=== PATIENT | female | born 1940 | race Caucasian/White ===

== ENCOUNTER 2025-02-19 17:06 | Inpatient (IN) ==
[2025-02-19 17:36] LABS: Hematocrit (blood only) 25.8 % (37.0-47.0); Hemoglobin 7.7 g/dl (12.0-16.0); Immature Granulocytes # (auto) 0.02 K/uL (0.01-0.20); Immature Granulocytes % (auto) 0.2 %; Mean Corpuscular Hemoglobin 21.2 pg (25.0-34.0); Mean Corpuscular Volume 70.9 fL (80.0-100.0); Platelet Count 265 K/uL (130-400); RDW Standard Deviation 40.8 fL (36.4-46.3); Red Blood Count 3.64 M/uL (4.20-5.40); White Blood Count 8.01 K/ul (4.8-10.8)
[2025-02-19 17:52] LABS: Anion Gap 8.0 (3-11); Blood Urea Nitrogen 16.0 mg/dl (6-23); Calcium 9.1 mg/dl (8.6-10.3); Carbon Dioxide 23.0 mmol/L (21-32); Chloride 110.0 mmol/L (98-107); Creatinine Clr Calc Pharmacy 63.9 ml/min; Glucose 104.0 mg/dl (70-99(Fasting)); Potassium 3.9 mmol/L (3.5-5.1); Sodium 141.0 mmol/L (136-145)
[2025-02-19 18:04] LABS: INR 1.1 (0.9-1.1); Partial Thromboplastin Time 23 Seconds (21-31); Prothrombin Time 11.3 Seconds (9.0-12.0)
--- NOTE | 2025-02-19 18:28 | History & Physical Report ---
Date of Service February 19, 2025 Assessment & Plan (1) GIB (gastrointestinal bleeding): (2) Diabetes mellitus: (3) HTN (hypertension): Plan Ms. Doshi is a 84-year-old female that presented via EMS from [facility] with complaints of rectal bleeding. Patient has a history of hemorrhoids. Per outpatient records additional past medical history includes NIDDM 2, history of right LE DVT, vitamin D deficiency, glaucoma, and HTN. Patient will be admitted for further evaluation and management of her GI bleed. Started on a Protonix drip in the ED, type and screen along with blood consent performed in the ED, hold Xarelto for now given active ER keep n.p.o. trend H&H 6 hours. GI consult for evaluation and recommendation. Please see A/P for further details. #GIB: hematochezia and melena Hgb 7.7; baseline 9-10 per limited [facility] records. Q6h H/H Add on anemia panel; most recent Fe level 12/08/2024 was 17, TIBC 4, transferrin 4, ferritin 14 reticulocyte percent 1.38 NPO for now Protonix gtt started in ED GI Consult placed #H/O hemorrhoids Per [facility] has referral (placed today) to colorectal surgeon to discuss re: hemorrhoids and rectal tone rectal bleeding and soreness for past few months. #Diabetes Mellitus: Non-insulin dependent Most recent A1C: 6.5 on 12/08/24 Diet-controlled #H/O RLE DVT: Per [facility] records; DVT was in 2020 She had one unprovoked DVT and normal anti-coagulation work-up; it was decided to use Xarelto for life. Consider discontinuing Xarelto. Disposition: PCP: Dr. Gomez Code Status: Full Code VTE Prophylaxis: Teds and SCDs for now I spent a total of 81 minutes coordinating, documenting, and providing care for this patient excluding time spent in the performance of separately billed services or time spent by another provider/QHP. History of Present Illness Chief Complaint: BRBPR Primary Care Provider: Savannah Tavarez at [place] Ms. Doshi is a 84-year-old female that presented via EMS from [facility] with complaints of rectal bleeding. Patient has a history of hemorrhoids. We have limited medical information. Per outpatient records additional past medical history includes NIDDM 2, history of right LE DVT, vitamin D deficiency, glaucoma, and HTN. She does take Xarelto for H/O DVT; reportedly did not take it today. Per outpatient records she presented to her PCP today to discuss fecal incontinence. Along with her rectal bleeding. These symptoms have been intermittent over the past few months. It was discussed with the patient due to her decreased rectal tone and the role that this could be playing in her incontinence a referral to colorectal surgery was placed today. Patient is cognitively confused; is aware that we are in the hospital but was unable to tell me what brought her in today and admittedly said that she does have cognitive issues. I did ask if she had any next of kin that she would like us to contact and she said that she really does not have anybody but her brother and he is not a reliable source.She recently over the last year moved to [facility] after her hip surgery from [facility]. In the ED no leukocytosis 81, hemoglobin 7.7, unknown baseline. Otherwise electrolytes unremarkable. Patient will be admitted for further evaluation and management of her GI bleed. Started on a Protonix drip in the ED, type and screen along with blood consent performed in the ED, hold Xarelto for now given active ER keep n.p.o. trend H&H 6 hours. GI consult for evaluation and recommendation. She had one unprovoked DVT and normal anti-coagulation work-up; it was decided to use Xarelto for life. Consider discontinuing Xarelto. Please see A/P for further details. Allergies Allergy/AdvReac Type Severity Reaction Status Date / Time codeine Allergy Unknown ON [facility] Verified 02/19/25 18:32 MED LIST oxycodone Allergy Unknown ON [facility] Verified 02/19/25 18:32 MED LIST Home Medications Medication Instructions Recorded Confirmed Type acetaminophen 325 mg tablet 650 mg PO BID 02/19/25 02/19/25 History (Tylenol) acetaminophen 325 mg tablet 650 mg PO Q4H PRN PAIN/TEMP >100F 02/19/25 02/19/25 History (Tylenol) cholecalciferol (vitamin D3) 25 25 mcg PO DAILY 02/19/25 02/19/25 History mcg (1,000 unit) capsule (Vitamin D3) furosemide 20 mg tablet 20 mg PO DAILY 02/19/25 02/19/25 History latanoprost 0.005 % eye drops 1 drp OPB HS 02/19/25 02/19/25 History pantoprazole 40 mg tablet,delayed 40 mg PO DAILY 02/19/25 02/19/25 History release potassium chloride 20 mEq 20 meq PO DAILY 02/19/25 02/19/25 History tablet,extended release(part/cryst) rivaroxaban 20 mg tablet (Xarelto) 20 mg PO HS 02/19/25 02/19/25 History Past Med/Surg History Problem List (Updated 02/19/25 @ 18:54 by KRISS Coleman) HTN (hypertension) Diabetes mellitus GIB (gastrointestinal bleeding) Surgical History (Updated 02/19/25 @ 18:54 by KRISS Coleman) No pertinent past surgical history Social History Smoking Status: Former smoker Feels Safe at Home: Yes Review of Systems Review of Systems: Neuro: (-) Falls, trauma, slurred speech HEENT: (-) WAHL, dizziness, dysphagia, visual or auditory changes CV: (-) CP, palpitations, swelling Resp: (-) SOB GI: (-) appetite changes, N/V/D, bowel changes : (-) urinary changes Skin: (-) rashes Psych: (-) anxiety, depression Physical Exam Physical Exam: Neuro: AAOx2, PERRLA, no aphagia, memory changes, CNII-XII grossly intact HEENT: head normocephalic, moist mucus membranes. pale on exam. CV: S1/S2, (-) M/G/R, (-) edema, cap refill < 3 seconds Resp: Lungs CTA in all gordon. On RA GI: Abdomen S/NT/ND, Ax4 bowel sounds, (-) CVA tenderness Musculoskeletal: 5/5 B/L UE strength, 5/5 B/L LE strength. No gait disturbance Skin: (-) rashes , (-) erythema. Psych: euthymic mood Results & Data Results & Data Vital Signs (Past 12 Hours) Vital Signs Temp Pulse Pulse Resp BP BP Pulse Ox 02/19/25 17:26 90 02/19/25 17:22 87 18 95 02/19/25 17:18 94 H 18 157/84 H 99 02/19/25 17:00 36.9 C 18 157/84 H O2 Del Method 02/19/25 17:26 02/19/25 17:22 Room Air 02/19/25 17:18 Room Air 02/19/25 17:00 Laboratory Results Short CBC 02/19/25 Range/Units 17:22 WBC 8.01 (4.8-10.8) K/ul Hgb 7.7 L (12.0-16.0) g/dl Hct 25.8 L (37.0-47.0) % Plt Count 265 (130-400) K/uL BMP 02/19/25 17:22 Sodium 141 Potassium 3.9 Chloride 110 H Carbon Dioxide 23 BUN 16 Creatinine 0.78 Glucose 104 H Calcium 9.1 Code Status & VTE Plan Code Status Full Code in the event of cardiac or respiratory arrest VTE Prophylaxis Plan VTE Prophylaxis will be ordered: Yes Supervising Physician Co-Signing Physician Notes Patient seen and examined at bedside. Patient confused, oriented to self and partially location. States she has been having dark and red stools today. Unable to give further history. On exam, patient well appearing, fidgeting, inattention to space and time noted. Hgb slightly lower than baseline at 7.7, creatinine at baseline, ferritin low suggestive of blood loss. [facility] for hematochezia and melena, patient poor historian. Does have hx of hemorrhoids but Hgb is below baseline of 9-10 and seems less likely culprit. Suspect possible upper GI bleed with combined hemorrhoidal bleeding. Protonix, blood consent, GI consult in AM for consideration of EGD, trend Hgb q6hrs. SCDs for prophylaxis. Hold xarelto, and should stop at discharge as risk seems to outweigh benefit at this time. Delirium precautions. I have seen and discussed the case with the collaborating advanced practitioner. I agree with the above H&P. I have reviewed and confirmed the patients medical history, the findings on physical examination, and the patients diagnosis and treatment plan with Mercedes MONTERROSO and agree with the information documented. I spent a total of 30 minutes coordinating, documenting, and providing care for this patient excluding time spent in the performance of separately billed services. All of the aforementioned completed outside of collaborating with the assigned advanced practitioner for a full treatment plan. I have reviewed the advanced practitioner's documentation, and I agree with, and take responsibility for the plan of care
[2025-02-19 18:29] LABS: Anisocytosis Present; Hypochromasia Present; Ovalocytes 1+
[2025-02-19] MEDS: PANTOprazole 40 MG in DEXTROSE 5% MINI-B 100 ML IV SCH (18:33)
[2025-02-19 19:37] LABS: Iron 13.0 mcg/dl (35-150); Transferrin 327.0 mg/dl (200-360)
[2025-02-19 19:54] LABS: Thyroid Stimulating Hormone 1.67 uIu/ml (0.300-4.500)
[2025-02-19 19:59] LABS: Ferritin 5.2 ng/ml (8-388)
[2025-02-19] MEDS: PANTOPRAZOLE BOLUS/DRIP IV STA (20:19)
[2025-02-19 20:35] LABS: Reticulocytes # 0.050 10^6/uL (0.020-0.100)
[2025-02-19 21:00] LABS: Appearance Urine Clear (Clear); Bacteria Urine Automated None Seen (None Seen); Cast Urine Automated 0-2 /lpf (0-2); Epithelial Cell Urine Auto 0-2 /hpf (0-2); Glucose Urine UA Negative (Negative); RBC Urine Automated 0-2 /hpf (0-2); WBC Urine Automated 0-5 /hpf (0-5)
[2025-02-19] MEDS ORDERED: ACETAMINOPHEN 325 MG TAB PO PRN (21:13)
[2025-02-19] MEDS ORDERED: ALUMINUM/MAGNESIUM SUSP 30 ML UDC PO PRN (21:13)
[2025-02-19] MEDS ORDERED: MAGNESIUM HYDROXIDE SUSP 30 ML UDC PO PRN (21:13)
[2025-02-19] MEDS ORDERED: POLYETHYLENE (MIRALAX) 17 GM PACK PO PRN (21:13)
[2025-02-19] MEDS ORDERED: ONDANSETRON INJ 2 MG/ML 2 ML VIAL IV PRN (21:13)
[2025-02-19] MEDS: LATANOPROST 0.005% OP SOLN 2.5 ML BTL OPB SCH (21:17)
[2025-02-19 23:47] LABS: Hematocrit (blood only) 24.7 % (37.0-47.0); Hemoglobin 7.4 g/dl (12.0-16.0)
--- NOTE | 2025-02-20 00:35 | Emergency Department Note ---
History of Present Illness General Chief complaint: Abnormal Labs/Diagnostic Testing Stated complaint: ABNORMAL LAB, RECTAL BLEED Time Seen by Provider: 02/19/25 17:11 History of Present Illness Provider Complaint: + melena and + gross hematochezia Onset (ago): 1 week(s) Pain Consistency: + constant Relieved By: + none Exacerbated By: + bowel movement Context: + hemorrhoids and + anticoagulant use (Xarelto); no liver disease or no alcohol abuse Associated symptoms: no abdominal pain, no nausea, no vomiting, no epistaxis, no fever, no chills or no headaches Home Medications Medication Instructions Recorded Confirmed Type acetaminophen 325 mg tablet 650 mg PO BID 02/19/25 02/19/25 History (Tylenol) acetaminophen 325 mg tablet 650 mg PO Q4H PRN PAIN/TEMP >100F 02/19/25 02/19/25 History (Tylenol) cholecalciferol (vitamin D3) 25 25 mcg PO DAILY 02/19/25 02/19/25 History mcg (1,000 unit) capsule (Vitamin D3) furosemide 20 mg tablet 20 mg PO DAILY 02/19/25 02/19/25 History latanoprost 0.005 % eye drops 1 drp OPB HS 02/19/25 02/19/25 History pantoprazole 40 mg tablet,delayed 40 mg PO DAILY 02/19/25 02/19/25 History release potassium chloride 20 mEq 20 meq PO DAILY 02/19/25 02/19/25 History tablet,extended release(part/cryst) rivaroxaban 20 mg tablet (Xarelto) 20 mg PO HS 02/19/25 02/19/25 History Allergies Allergy/AdvReac Type Severity Reaction Status Date / Time codeine Allergy Unknown ON [facility] Verified 02/19/25 18:32 MED LIST oxycodone Allergy Unknown ON [facility] Verified 02/19/25 18:32 MED LIST Past Med/Surg History Problem List (Updated 02/20/25 @ 00:35 by Luis Araiza MD) GIB (gastrointestinal bleeding) (Acute) Medical History Diabetes mellitus HTN (hypertension) Surgical History No pertinent past surgical history Social History Smoking Status: Unknown if ever smoked Hx Alcohol Use: No Hx Substance Use: No Preferred Language: Tajik Communication Ability: Effective Journal Box Inspector Required: No Beliefs That Will Affect Care: None Current Living Situation: Personal Care Facility Current Living Situation Comment: [facility] Feels Safe at Home: Yes Safety Concerns: Feels Safe At This Time Assistive Devices: Glasses and Walker Physical Exam 2 Vital Signs: Vital Signs - 24 hr 02/19/25 17:00 02/19/25 17:18 02/19/25 17:22 Temperature 36.9 C Temperature Source Oral Pulse Rate 87 Pulse Rate [Right Finger] 94 H Respiratory Rate 18 18 18 Blood Pressure 157/84 H Blood Pressure [Le ft Arm] 157/84 H Blood Pressure Kelly n 108 Blood Pressure Kelly n [Left Arm] 108 Pulse Oximetry 99 95 Oxygen Delivery Me thod Room Air Room Air Sepsis Recent Feve r Within 48 Hours No Sepsis New/Unexpla ined Change in Men bia Status No Sepsis Action Take n by Nursing No Action Required 02/19/25 17:26 Temperature Temperature Source Pulse Rate 90 Pulse Rate [Right Finger] Respiratory Rate Blood Pressure Blood Pressure [Le ft Arm] Blood Pressure Kelly n Blood Pressure Kelly n [Left Arm] Pulse Oximetry Oxygen Delivery Me thod Sepsis Recent Feve r Within 48 Hours Sepsis New/Unexpla ined Change in Men bia Status Sepsis Action Take n by Nursing Physical Exam: Physical Exam GENERAL: oriented to person, place, and time. appears well-developed and well- nourished. She does not appear distressed. HENT: Exam performed. -Head: Normocephalic and atraumatic. -Right Ear: External ear normal. No mastoid erythema -Left Ear: External ear normal. No mastoid erythema -Mouth/Throat: The oropharynx is clear and moist. No trismus in the jaw. No dental abscesses or uvula swelling. No oropharyngeal exudate or tonsillar abscesses. EYES: Conjunctivae and EOM are normal.Right eye exhibits no discharge. Left eye exhibits no discharge. No scleral icterus. NECK: Normal range of motion. Neck supple. No JVD present. No tracheal deviation and normal range of motion present. CV: Normal rate, regular rhythm, normal heart sounds and intact distal pulses. There is no peripheral edema. Palpable radial pulses bue. PULM/CHEST: Effort normal and breath sounds normal. No respiratory distress. No stridor. no wheezes.no rales. -Chest Wall: no tenderness to palpation ABD: The abdomen is soft. Bowel sounds are normal. no distension. No mass is present. There is no tenderness. There is no rebound, no guarding, no Mckeon's sign and no tenderness at McBurney's point. Rovsig negative Rectal: Rectal exam performed with female nursing on site coordinator Jeannie. Melanotic stools. Hemoccult positive. Soft flesh-colored hemorrhoid with bleeding. MUSC/SKEL: Normal range of motion. There is no peripheral edema, tenderness or deformity. NEURO: Motor and sensation grossly intact. SKIN: Skin is warm and dry. not diaphoretic. PSYCH: normal mood and affect. Behavior is normal. Judgment and thought content normal. Course Course 1710: The patient was evaluated in room B12. A complete history and physical exam was performed Cardiac monitoring: An order was placed for continuous cardiac monitoring. The monitor shows a rate of 80 with sinus rhythm interpreted by me Patient be placed on Protonix bolus and drip. 191: Vital signs stable. Labs show hemoglobin of 7.7. Otherwise unremarkable. [facility]. Administered Medications Pantoprazole Sodium 40 mg/ (Dextrose) 100 mls @ 20 mls/hr IV Q5H [facility] Stop: 03/21/25 17:59 Last Admin: 02/19/25 22:24 Dose: 8 mg/hr, 20 mls/hr Documented By: Infusion: 02/19/25 22:24 Dose: Infused Documented By: Admin: 02/19/25 18:33 Dose: 8 mg/hr, 20 mls/hr Documented By: jennifer Latanoprost (Latanoprost 0.005% Op Soln 2.5 Ml Btl) 1 drops OPB HS [facility] Stop: 03/21/25 20:59 Last Admin: 02/19/25 21:17 Dose: 1 drops Documented By: MARIPOSA Discontinued Medications Pantoprazole Sodium 80 mg/ (Dextrose) 120 mls @ 480 mls/hr IV NOW ONE Stop: 02/19/25 17:50 Last Infusion: 02/19/25 20:20 Dose: Infused Documented By: Admin: 02/19/25 18:13 Dose: 480 mls/hr Documented By: jennifer Pantoprazole Sodium (Pantoprazole Bolus/Drip) 1 each IV NOW STA Stop: 02/19/25 17:37 Last Admin: 02/19/25 20:19 Dose: Not Given Documented By: MARTHA Medical Decision Making Laboratory Data Attestation: I reviewed the patient's lab results. 02/19/25 23:33 02/19/25 17:22 Lab Results 02/19/25 02/19/25 Range/Units 17:22 18:13 WBC 8.01 (4.8-10.8) K/ul RBC 3.64 L (4.20-5.40) M/uL Hgb 7.7 L (12.0-16.0) g/dl Hct 25.8 L (37.0-47.0) % MCV 70.9 L (80.0-100.0) fL MCH 21.2 L (25.0-34.0) pg MCHC 29.8 L (32.0-36.0) g/dL RDW Std Deviation 40.8 (36.4-46.3) fL RDW Coeff of Ron 15.9 H (11.5-14.5) % Plt Count 265 (130-400) K/uL MPV 11.1 (9.4-12.4) fL Immature Gran % (Auto) 0.2 % Neut % (Auto) 62.6 % Lymph % (Auto) 22.3 % Tyler % (Auto) 11.7 % Eos % (Auto) 2.5 % Baso % (Auto) 0.7 % Reticulocyte % (Auto) 1.27 (0.50-2.00) % Neut # (Auto) 5.00 (1.40-6.50) K/uL Lymph # (Auto) 1.79 (1.20-3.40) K/uL Tyler # (Auto) 0.94 H (0.11-0.59) K/uL Eos # (Auto) 0.20 (0.00-0.50) K/uL Baso # (Auto) 0.06 (0.00-0.20) K/uL Reticulocyte # 0.050 (0.020-0.100) 10^6/uL Immature Gran # (Auto) 0.02 (0.01-0.20) K/uL Hypochromasia Present Anisocytosis Present Ovalocytes 1+ PT 11.3 (9.0-12.0) Seconds INR 1.1 (0.9-1.1) APTT 23 (21-31) Seconds PTT Ratio 0.8 Sodium 141 (136-145) mmol/L Potassium 3.9 (3.5-5.1) mmol/L Chloride 110 H (98-107) mmol/L Carbon Dioxide 23 (21-32) mmol/L Anion Gap 8 (3-11) BUN 16 (6-23) mg/dl Creatinine 0.78 (0.6-1.2) mg/dl Est Cr Clr Drug Dosing 63.9 ml/min eGFR 75.32 BUN/Creatinine Ratio 20.5 H (10-20) Glucose 104 H (70-99(Fasting)) mg/dl Calcium 9.1 (8.6-10.3) mg/dl Iron 13 L (35-150) mcg/dl Transferrin 327 (200-360) mg/dl Ferritin 5.2 L (8-388) ng/ml Vitamin B12 151 L (180-914) pg/ml TSH 1.670 (0.300-4.500) uIu/ml Blood Type O Positive Antibody Screen NEGATIVE ECG Data Attestation: I personally reviewed and interpreted this ECG as follows: Rate (beats per minute): 84 Rhythm: normal sinus Findings: no ST depression, no ST elevation or no prolonged QT MDM Narrative 1711: The patient was evaluated in room B12. A complete history and physical exam was performed Cardiac monitoring: An order was placed for continuous cardiac monitoring. The monitor shows a rate of 80 with sinus rhythm interpreted by me Patient be placed on Protonix bolus and drip. 1915: Vital signs stable. Labs show hemoglobin of 7.7. Otherwise unremarkable. [facility] Impression & Plan GIB (gastrointestinal bleeding) Discharge Plan Visit Data Chief Complaint: Abnormal Labs/Diagnostic Testing Stated Complaint: ABNORMAL LAB, RECTAL BLEED ED Provider: Luis Araiza Discharge Problem: GIB (gastrointestinal bleeding) Patient Disposition: Admitted As Inpatient Condition: Fair Discharge Instructions Interventions: ED Discharge Assessment Last Done: 02/19/25 20:39
[2025-02-20 06:34] LABS: Hematocrit (blood only) 24.8 % (37.0-47.0); Hemoglobin 7.4 g/dl (12.0-16.0)
[2025-02-20 07:03] LABS: Anion Gap 8.0 (3-11); Blood Urea Nitrogen 12.0 mg/dl (6-23); Calcium 8.7 mg/dl (8.6-10.3); Carbon Dioxide 23.0 mmol/L (21-32); Chloride 109.0 mmol/L (98-107); Creatinine Clr Calc Pharmacy 62.6 ml/min; Glucose 123.0 mg/dl (70-99(Fasting)); Magnesium 1.9 mg/dl (1.7-2.4); Potassium 3.9 mmol/L (3.5-5.1); Sodium 140.0 mmol/L (136-145)
[2025-02-20] MEDS: IRON SUCROSE 300 MG in SODIUM CHLORIDE 0.9% 250 ML IV ONE (08:35)
[2025-02-20] MEDS: POTASSIUM CHLORIDE CRTAB 20 MEQ TABCR PO SCH (08:35)
[2025-02-20] MEDS: FUROSEMIDE 20 MG TAB PO SCH (08:36)
--- NOTE | 2025-02-20 08:36 | Gastrointestinal Consultation ---
Date of Consultation February 20, 2025 Assessment & Plan (1) GIB (gastrointestinal bleeding): 84 year old anxious female with anemia and rectal bleeding. She reports black stools "for many months". Hgb 7.4 on admit and remained stable over night. She does need evaluation with EGD and colonoscopy. Since she has been on xarelto we will wait until Saturday as this is not emergent. She really wants to go back to [facility] but I told her I would recommend she stay for evaluation. She wants to talk to hospitalist in charge. If she remains will prep for EGD and colonoscopy on Saturday. She can have clear liquids until then. History of Present Illness Reason for Consultation: rectal bleeding Attending Physician: Eunice Mcclelland MD History of Present Illness 84 year old female whom I am asked to see about rectal bleeding. Patient gives a very disjointed history but does say she has seen black stools for many months. She knows she has hemorrhoid problems and says she does have "bleeding hemorrhoids". She is apparently set up to see a colorectal surgeon as an outpatient. She denies abdominal pain but does admit to what she calls "anal pain". She also has some issues with incontinence. She says she has never had an EGD or a colonoscopy. She is very frantic and anxious on my visit and keeps asking just to be sent back to [facility] as she does not want to be in the hospital. She does take xarelto and took her last dose yesterday. Allergies Allergy/AdvReac Type Severity Reaction Status Date / Time codeine Allergy Unknown ON [facility] Verified 02/19/25 18:32 MED LIST oxycodone Allergy Unknown ON [facility] Verified 02/19/25 18:32 MED LIST Home Medications Medication Instructions Recorded Confirmed Type acetaminophen 325 mg tablet 650 mg PO BID 02/19/25 02/19/25 History (Tylenol) acetaminophen 325 mg tablet 650 mg PO Q4H PRN PAIN/TEMP >100F 02/19/25 02/19/25 History (Tylenol) cholecalciferol (vitamin D3) 25 25 mcg PO DAILY 02/19/25 02/19/25 History mcg (1,000 unit) capsule (Vitamin D3) furosemide 20 mg tablet 20 mg PO DAILY 02/19/25 02/19/25 History latanoprost 0.005 % eye drops 1 drp OPB HS 02/19/25 02/19/25 History pantoprazole 40 mg tablet,delayed 40 mg PO DAILY 02/19/25 02/19/25 History release potassium chloride 20 mEq 20 meq PO DAILY 02/19/25 02/19/25 History tablet,extended release(part/cryst) rivaroxaban 20 mg tablet (Xarelto) 20 mg PO HS 02/19/25 02/19/25 History Patient History Medical History Diabetes mellitus HTN (hypertension) Surgical History No pertinent past surgical history Social History Smoking Status: Unknown if ever smoked Hx Alcohol Use: No Hx Substance Use: No Preferred Language: Dominican Communication Ability: Effective Urology Nurse Required: No Beliefs That Will Affect Care: None Current Living Situation: Personal Care Facility Current Living Situation Comment: [facility] Feels Safe at Home: Yes Safety Concerns: Feels Safe At This Time Assistive Devices: Glasses and Walker Review of Systems Review of Systems: Unobtainable due to cognitive status Physical Exam Physical Exam: Elderly, anxious female, in no physical distress Constitutional: WD/WN, vitals as above Neck: trachea midline, no thyromegaly Respiratory: normal respiratory effort, lungs clear to auscultation Cardiovascular: RRR, no murmur, no edema Gastrointestinal (Abdomen): normal bowel sounds, soft, nontender, no hepatosplenomegaly Results & Data Vital Signs (Past 12 Hours) Vital Signs Temp Pulse Pulse Resp BP Pulse Ox Pulse Ox 02/20/25 08:20 36.6 C 76 19 126/71 97 02/20/25 07:23 72 02/20/25 02:59 36.7 C 96 H 19 131/69 94 02/19/25 21:13 97 02/19/25 21:00 36.7 C 91 H 20 151/72 H 97 O2 Del Method O2 Del Method 02/20/25 08:20 Room Air 02/20/25 07:23 02/20/25 02:59 Room Air 02/19/25 21:13 Room Air 02/19/25 21:00 Room Air Laboratory Results 02/20/25 02/19/25 02/19/25 Range/Units 05:34 23:33 19:16 WBC (4.8-10.8) K/ul RBC (4.20-5.40) M/uL Hgb 7.4 L 7.4 L (12.0-16.0) g/dl Hct 24.8 L 24.7 L (37.0-47.0) % MCV (80.0-100.0) fL MCH (25.0-34.0) pg MCHC (32.0-36.0) g/dL RDW Std Deviation (36.4-46.3) fL RDW Coeff of Ron (11.5-14.5) % Plt Count (130-400) K/uL MPV (9.4-12.4) fL Immature Gran % (Auto) % Neut % (Auto) % Lymph % (Auto) % [place] % (Auto) % Eos % (Auto) % Baso % (Auto) % Reticulocyte % (Auto) (0.50-2.00) % Neut # (Auto) (1.40-6.50) K/uL Lymph # (Auto) (1.20-3.40) K/uL [place] # (Auto) (0.11-0.59) K/uL Eos # (Auto) (0.00-0.50) K/uL Baso # (Auto) (0.00-0.20) K/uL Reticulocyte # (0.020-0.100) 10^6/uL Immature Gran # (Auto) (0.01-0.20) K/uL Hypochromasia Anisocytosis Ovalocytes PT (9.0-12.0) Seconds INR (0.9-1.1) APTT (21-31) Seconds PTT Ratio Sodium 140 (136-145) mmol/L Potassium 3.9 (3.5-5.1) mmol/L Chloride 109 H (98-107) mmol/L Carbon Dioxide 23 (21-32) mmol/L Anion Gap 8 (3-11) BUN 12 (6-23) mg/dl Creatinine 0.76 (0.6-1.2) mg/dl Est Cr Clr Drug Dosing 62.6 ml/min eGFR 77.70 BUN/Creatinine Ratio 15.8 (10-20) Glucose 123 H (70-99(Fasting)) mg/dl Calcium 8.7 (8.6-10.3) mg/dl Phosphorus 3.4 (2.5-4.9) mg/dl Magnesium 1.9 (1.7-2.4) mg/dl Iron (35-150) mcg/dl Transferrin (200-360) mg/dl Ferritin (8-388) ng/ml Vitamin B12 (180-914) pg/ml TSH (0.300-4.500) uIu/ml Urine Color Yellow Urine Appearance Clear (Clear) Urine pH 7.0 (4.5-7.5) Ur Specific [place] 1.009 (1.000-1.030) Urine Protein Negative (Negative) Urine Glucose (UA) Negative (Negative) Urine Ketones Negative (Negative) Urine Blood Trace H (Negative) Urine Nitrite Negative (Negative) Urine Bilirubin Negative (Negative) Urine Urobilinogen Negative (Negative) Ur Leukocyte Esterase Trace H (Negative) Urine WBC (Auto) 0-5 (0-5) /hpf Urine RBC (Auto) 0-2 (0-2) /hpf U Hyaline Cast (Auto) 0-2 (0-2) /lpf U Epithel Cells (Auto) 0-2 (0-2) /hpf Urine Bacteria (Auto) None Seen (None Seen) Urine Comment Blood Type Antibody Screen 02/19/25 02/19/25 Range/Units 18:13 17:22 WBC 8.01 (4.8-10.8) K/ul RBC 3.64 L (4.20-5.40) M/uL Hgb 7.7 L (12.0-16.0) g/dl Hct 25.8 L (37.0-47.0) % MCV 70.9 L (80.0-100.0) fL MCH 21.2 L (25.0-34.0) pg MCHC 29.8 L (32.0-36.0) g/dL RDW Std Deviation 40.8 (36.4-46.3) fL RDW Coeff of Ron 15.9 H (11.5-14.5) % Plt Count 265 (130-400) K/uL MPV 11.1 (9.4-12.4) fL Immature Gran % (Auto) 0.2 % Neut % (Auto) 62.6 % Lymph % (Auto) 22.3 % [place] % (Auto) 11.7 % Eos % (Auto) 2.5 % Baso % (Auto) 0.7 % Reticulocyte % (Auto) 1.27 (0.50-2.00) % Neut # (Auto) 5.00 (1.40-6.50) K/uL Lymph # (Auto) 1.79 (1.20-3.40) K/uL [place] # (Auto) 0.94 H (0.11-0.59) K/uL Eos # (Auto) 0.20 (0.00-0.50) K/uL Baso # (Auto) 0.06 (0.00-0.20) K/uL Reticulocyte # 0.050 (0.020-0.100) 10^6/uL Immature Gran # (Auto) 0.02 (0.01-0.20) K/uL Hypochromasia Present Anisocytosis Present Ovalocytes 1+ PT 11.3 (9.0-12.0) Seconds INR 1.1 (0.9-1.1) APTT 23 (21-31) Seconds PTT Ratio 0.8 Sodium 141 (136-145) mmol/L Potassium 3.9 (3.5-5.1) mmol/L Chloride 110 H (98-107) mmol/L Carbon Dioxide 23 (21-32) mmol/L Anion Gap 8 (3-11) BUN 16 (6-23) mg/dl Creatinine 0.78 (0.6-1.2) mg/dl Est Cr Clr Drug Dosing 63.9 ml/min eGFR 75.32 BUN/Creatinine Ratio 20.5 H (10-20) Glucose 104 H (70-99(Fasting)) mg/dl Calcium 9.1 (8.6-10.3) mg/dl Phosphorus (2.5-4.9) mg/dl Magnesium (1.7-2.4) mg/dl Iron 13 L (35-150) mcg/dl Transferrin 327 (200-360) mg/dl Ferritin 5.2 L (8-388) ng/ml Vitamin B12 151 L (180-914) pg/ml TSH 1.670 (0.300-4.500) uIu/ml Urine Color Urine Appearance (Clear) Urine pH (4.5-7.5) Ur Specific [place] (1.000-1.030) Urine Protein (Negative) Urine Glucose (UA) (Negative) Urine Ketones (Negative) Urine Blood (Negative) Urine Nitrite (Negative) Urine Bilirubin (Negative) Urine Urobilinogen (Negative) Ur Leukocyte Esterase (Negative) Urine WBC (Auto) (0-5) /hpf Urine RBC (Auto) (0-2) /hpf U Hyaline Cast (Auto) (0-2) /lpf U Epithel Cells (Auto) (0-2) /hpf Urine Bacteria (Auto) (None Seen) Urine Comment Blood Type O Positive Antibody Screen NEGATIVE
--- NOTE | 2025-02-20 13:12 | Hospitalist Progress Note ---
Date of Service February 20, 2025 Assessment & Plan (1) GIB (gastrointestinal bleeding): (2) Diabetes mellitus: (3) HTN (hypertension): Plan Ms. Doshi is an 84 year old woman with NIDDM 2, chronic right LE DVT, vitamin D deficiency, glaucoma, hemorrhoids and HTN admitted for further evaluation of acute anemia iso reported GIB. Patient with notably low iron. Patient following op providers for concerns since 11/2024. Patient notably anxious, but will reinforce CLD and encourage EGD/C-scope come Saturday. #GIB #External hemorrhoids : Followed with Dr Bose on 12/08/2024: reports of 6 months of bleeding, started hydrocortisone cream in august for hemorrhoids, reports daily blood and stool leakage, started on anusol daily followed with PCP on 02/19: . Abdominal xray to eval for stool burden and rule out overflow diarrhea. Discussed with pt decreased rectal tone and the role this is likely playing in the incontinence. Will place referral to colorectal surgery to discuss options with the pt Re: hemorrhoid and rectal tone. hematochezia and melena GI Consult: if patient able to stay and tolerate prep, will plan for EGD/colonoscopy on Saturday start anusol suppository #acute on chronic microcytic anemia #Iron deificiency anemia 12/08/2024 hgb 9.9, down to 7s now; hgb in 2023 ~14 Ferritin 5.2, b12 151. iron 13 Start venofer 300mg x 3 transfuse hgb <7.0 plan for possible scope on Saturday #Diabetes Mellitus: Non-insulin dependent Most recent A1C: 6.5 on 12/08/24 Diet-controlled #Chronic RLE DVT: Per [facility] records; DVT was in 2020, followed Dr. Ortega last in 2022 She had one unprovoked DVT and normal anti-coagulation work-up; it was decided to use Xarelto for life. hold Xarelto. Disposition: PCP: Dr. Gomez Code Status: Full Code VTE Prophylaxis: Teds and SCDs for now Admission and Anticipated Discharge Date Admission Date: February 19, 2025 Subjective evaluated patient at bedside, very anxious and reports poor memory worked to help patient understand hospitalization, patient reports frustration with staying here in the hospital Denies any current pain but reports this dark stool ongoing for months Physical Exam Constitutional: WD/WN, vitals as above Respiratory: normal respiratory effort, lungs clear to auscultation Cardiovascular: RRR, no murmur, no edema Gastrointestinal (Abdomen): normal bowel sounds, soft, nontender, no hepatosplenomegaly Results & Data Results & Data Vital Signs (Past 12 Hours) Vital Signs Temp Pulse Pulse Resp BP Pulse Ox O2 Del Method 02/20/25 08:20 36.6 C 76 19 126/71 97 Room Air 02/20/25 07:23 72 02/20/25 02:59 36.7 C 96 H 19 131/69 94 Room Air
[2025-02-20] MEDS: CYANOCOBALAMIN (B-12) 500 MCG TABLET PO SCH (14:40)
[2025-02-20] MEDS: HYDROCORTISONE ACETATE 25 MG SUPP PR SCH (14:40)
[2025-02-21 07:01] LABS: Hematocrit (blood only) 24.6 % (37.0-47.0); Hemoglobin 7.2 g/dl (12.0-16.0); Mean Corpuscular Hemoglobin 20.7 pg (25.0-34.0); Mean Corpuscular Volume 70.9 fL (80.0-100.0); Platelet Count 247 K/uL (130-400); RDW Standard Deviation 41.0 fL (36.4-46.3); Red Blood Count 3.47 M/uL (4.20-5.40); White Blood Count 5.99 K/ul (4.8-10.8)
[2025-02-21 07:28] LABS: Anion Gap 7.0 (3-11); Blood Urea Nitrogen 8.0 mg/dl (6-23); Calcium 8.9 mg/dl (8.6-10.3); Carbon Dioxide 25.0 mmol/L (21-32); Chloride 110.0 mmol/L (98-107); Creatinine Clr Calc Pharmacy 65.9 ml/min; Glucose 118.0 mg/dl (70-99(Fasting)); Magnesium 2.0 mg/dl (1.7-2.4); Potassium 3.5 mmol/L (3.5-5.1); Sodium 142.0 mmol/L (136-145)
[2025-02-21] MEDS: IRON SUCROSE 300 MG in SODIUM CHLORIDE 0.9% 250 ML IV ONE (08:35)
[2025-02-21] MEDS ORDERED: HYDROCORTISONE HC 2.5% CRM 30GM TUBE EXT PRN (08:53)
--- NOTE | 2025-02-21 09:02 | Gastroenterology Progress Note ---
Date of Service February 21, 2025 Assessment & Plan (1) GIB (gastrointestinal bleeding): Plan: Plan EGD and colonoscopy tomorrow. Discussed importance of taking prep. Discussed procedure and risks with her as well. She wants to do them. Admission and Anticipated Discharge Date Admission Date: February 19, 2025 Subjective much calmer today, in better spirits, smiling, agreeable Physical Exam Physical Exam: she looks well Constitutional: WD/WN, vitals as above Results & Data Vital Signs (Past 12 Hours) Vital Signs Temp Pulse Resp BP Pulse Ox O2 Del Method 02/21/25 08:55 36.5 C 83 18 137/83 96 Room Air 02/21/25 03:45 36.8 C 79 18 123/71 95 Room Air 02/20/25 23:14 36.8 C 93 H 18 124/65 95 Room Air
--- NOTE | 2025-02-21 09:32 | Hospitalist Progress Note ---
Date of Service February 21, 2025 Assessment & Plan (1) GIB (gastrointestinal bleeding): (2) Diabetes mellitus: (3) HTN (hypertension): Plan Ms. Doshi is an 84 year old woman with NIDDM 2, chronic right LE DVT, vitamin D deficiency, glaucoma, hemorrhoids and HTN admitted for further evaluation of acute anemia iso reported GIB. Patient with notably low iron. Patient following op providers for concerns since 11/2024. Patient more calm and understanding today, but will reinforce CLD and encourage EGD/C-scope come Saturday. Agrees to hydrocortisone cream and sitz baths for now. 2/3 Venofer today. #GIB #External hemorrhoids : Followed with Dr oBse on 12/08/2024: reports of 6 months of bleeding, started hydrocortisone cream in august for hemorrhoids, reports daily blood and stool leakage, started on anusol daily followed with PCP on 02/19: . Abdominal xray to eval for stool burden and rule out overflow diarrhea. Discussed with pt decreased rectal tone and the role this is likely playing in the incontinence. Will place referral to colorectal surgery to discuss options with the pt Re: hemorrhoid and rectal tone. hematochezia and melena GI Consult: if patient able to stay and tolerate prep, will plan for EGD/colonoscopy on Saturday declined anusol suppository, start oinment sitz bath tid #acute on chronic microcytic anemia #Iron deificiency anemia 12/08/2024 hgb 9.9, down to 7s now; hgb in 2023 ~14 Ferritin 5.2, b12 151. iron 13 continue venofer 300mg 2/ 3 transfuse hgb <7.0 plan for possible scope on Saturday #Diabetes Mellitus: Non-insulin dependent Most recent A1C: 6.5 on 12/08/24 Diet-controlled #Chronic RLE DVT: Per [facility] records; DVT was in 2020, followed Dr. Ortega last in 2022 She had one unprovoked DVT and normal anti-coagulation work-up; it was decided to use Xarelto for life. hold Xarelto for now, resume after procedures if hgb remains stable Disposition: PCP: Dr. Gomez Code Status: Full Code VTE Prophylaxis: Teds and SCDs for now Admission and Anticipated Discharge Date Admission Date: February 19, 2025 Subjective Patient pleasant and less anxious this morning Requires items to be written down, understands the plan and recalls some details from day prior reports that the bleeding concern is bothersome and she will do her best for the prep today explained the sitz bath and the steroid cream, she is agreeable to trialing these measures Physical Exam Constitutional: WD/WN, vitals as above Respiratory: normal respiratory effort, lungs clear to auscultation Cardiovascular: RRR, no murmur, no edema Gastrointestinal (Abdomen): normal bowel sounds, soft, nontender, no hepatosplenomegaly Results & Data Results & Data Vital Signs (Past 12 Hours) Vital Signs Temp Pulse Resp BP Pulse Ox O2 Del Method 02/21/25 08:55 36.5 C 83 18 137/83 96 Room Air 02/21/25 03:45 36.8 C 79 18 123/71 95 Room Air 02/20/25 23:14 36.8 C 93 H 18 124/65 95 Room Air
[2025-02-21] MEDS: LAVAGE SOLUTION 4000ML PO SCH (17:50)
[2025-02-22] MEDS: IRON SUCROSE 300 MG in SODIUM CHLORIDE 0.9% 250 ML IV ONE (07:58)
[2025-02-22 08:29] LABS: Microcytosis Present
--- NOTE | 2025-02-22 09:23 | Electrocardiogram Report ---
Test Reason : Blood Pressure : */* mmHG Vent. Rate : 84 BPM Atrial Rate : 84 BPM P-R Int : 140 ms QRS Dur : 96 ms QT Int : 360 ms P-R-T Axes : 31 -7 26 degrees QTcB Int : 425 ms Normal sinus rhythm Low voltage QRS Borderline ECG No previous ECGs available Confirmed by Woody Tang ([id number]) on 02/22/2025 9:23:43 AM Referred By: [facility] Confirmed By: Woody Tang
[2025-02-22 10:17] LABS: Hematocrit (blood only) 25.6 % (37.0-47.0); Hemoglobin 7.7 g/dl (12.0-16.0); Mean Corpuscular Hemoglobin 21.3 pg (25.0-34.0); Mean Corpuscular Volume 70.7 fL (80.0-100.0); Platelet Count 260 K/uL (130-400); RDW Standard Deviation 41.1 fL (36.4-46.3); Red Blood Count 3.62 M/uL (4.20-5.40); White Blood Count 6.33 K/ul (4.8-10.8)
[2025-02-22 10:48] LABS: Magnesium 2.0 mg/dl (1.7-2.4)
[2025-02-22 10:49] LABS: Anion Gap 8.0 (3-11); Calcium 8.8 mg/dl (8.6-10.3); Carbon Dioxide 27.0 mmol/L (21-32); Chloride 109.0 mmol/L (98-107); Potassium 3.2 mmol/L (3.5-5.1); Sodium 144.0 mmol/L (136-145)
[2025-02-22 10:55] LABS: Blood Urea Nitrogen 6.0 mg/dl (6-23); Creatinine Clr Calc Pharmacy 65.5 ml/min; Glucose 107.0 mg/dl (70-99(Fasting))
--- NOTE | 2025-02-22 11:43 | History & Physical Report ---
Date of Service February 22, 2025 Assessment & Plan (1) GIB (gastrointestinal bleeding): Plan: Procedure and risks discussed for EGD and colonoscopy. She agrees Admission and Anticipated Discharge Date Admission Date: February 19, 2025 History of Present Illness Chief Complaint: For EGD and colonoscopy Primary Care Provider: Savannah Tavarez at [facility] 84 year old female admitted with bleeding and anemia. We are doing EGD and colonoscopy Allergies Allergy/AdvReac Type Severity Reaction Status Date / Time codeine Allergy Unknown ON [facility] Verified 02/22/25: MED LIST oxycodone Allergy Unknown ON [facility] Verified 02/22/25: MED LIST Home Medications Medication Instructions Recorded Confirmed Type acetaminophen 325 mg tablet 650 mg PO BID 02/19/25 02/22/25 History (Tylenol) acetaminophen 325 mg tablet 650 mg PO Q4H PRN PAIN/TEMP >100F 02/19/25 02/22/25 History (Tylenol) cholecalciferol (vitamin D3) 25 25 mcg PO DAILY 02/19/25 02/22/25 History mcg (1,000 unit) capsule (Vitamin D3) furosemide 20 mg tablet 20 mg PO DAILY 02/19/25 02/22/25 History latanoprost 0.005 % eye drops 1 drp OPB HS 02/19/25 02/22/25 History pantoprazole 40 mg tablet,delayed 40 mg PO DAILY 02/19/25 02/22/25 History release potassium chloride 20 mEq 20 meq PO DAILY 02/19/25 02/22/25 History tablet,extended release(part/cryst) rivaroxaban 20 mg tablet (Xarelto) 20 mg PO HS 02/19/25 02/22/25 History Past Med/Surg History Problem List GIB (gastrointestinal bleeding) (Acute) Medical History Diabetes mellitus HTN (hypertension) Surgical History No pertinent past surgical history Social History Smoking Status: Unknown if ever smoked Hx Alcohol Use: No Hx Substance Use: No Preferred Language: Libyan Communication Ability: Effective Spa Concierge Required: No Beliefs That Will Affect Care: None Current Living Situation: Personal Care Facility Current Living Situation Comment: [facility] Feels Safe at Home: Yes Safety Concerns: Feels Safe At This Time Assistive Devices: Walker Physical Exam Constitutional: WD/WN, vitals as above Respiratory: normal respiratory effort, lungs clear to auscultation Cardiovascular: RRR, no murmur, no edema Gastrointestinal (Abdomen): normal bowel sounds, soft, nontender, no hepatosplenomegaly ASA Classification ASA ASA3 Results & Data Vital Signs (Past 12 Hours) Vital Signs Temp Pulse Pulse Resp BP Pulse Ox O2 Del Method 02/22/25 11:27 36.3 C L 82 16 138/73 92 Room Air 02/22/25 07:45 36.6 C 71 17 129/74 93 Room Air 02/22/25 03:25 36.6 C 74 18 114/61 97 Room Air 02/21/25 23:46 36.6 C 84 18 131/68 95 Room Air Code Status & VTE Plan VTE Prophylaxis Plan VTE Prophylaxis will be ordered: Yes
--- NOTE | 2025-02-22 12:00 | Anesthesiology Consultation ---
Date of Service February 22, 2025 Assessment & Plan Chart Review Chart Review: Acceptable Risk for Surgery and Patient NOT seen in Pre Admission Testing Consults Requested none ASA ASA3 Proposed Anesthesia Anesthesia Type: MAC Risk / Benefits Reviewed With: PT / POA / Parent / Guardian, Accepts Plan and Informed Consent Obtained History Surgery Operation Date: 02/22/25 16:30 Proposed Procedures p Colonoscopy EGD Dr. Domi Duron Jr, MD Height/Weight Height: 5 ft 8 in Weight: 79.7 kg Allergies Allergy/AdvReac Type Severity Reaction Status Date / Time codeine Allergy Unknown ON Verified 02/22/25: MED LIST oxycodone Allergy Unknown [facility] Verified 02/22/25: MED LIST Medications Home Medications Medication Instructions Recorded Confirmed Last Taken acetaminophen 325 mg tablet 650 mg PO BID 02/19/25 02/22/25 Unknown (Tylenol) acetaminophen 325 mg tablet 650 mg PO Q4H PRN PAIN/TEMP >100F 02/19/25 02/22/25 Unknown (Tylenol) cholecalciferol (vitamin D3) 25 25 mcg PO DAILY 02/19/25 02/22/25 Unknown mcg (1,000 unit) capsule (Vitamin D3) furosemide 20 mg tablet 20 mg PO DAILY 02/19/25 02/22/25 Unknown latanoprost 0.005 % eye drops 1 drp OPB HS 02/19/25 02/22/25 Unknown pantoprazole 40 mg tablet,delayed 40 mg PO DAILY 02/19/25 02/22/25 Unknown release potassium chloride 20 mEq 20 meq PO DAILY 02/19/25 02/22/25 Unknown tablet,extended release(part/cryst) rivaroxaban 20 mg tablet (Xarelto) 20 mg PO HS 02/19/25 02/22/25 02/19/25 Active Medications Generic Name Dose Route Start Last Admin Trade Name Freq PRN Reason Stop Dose Admin Cyanocobalamin 1,000 mcg 02/20/25 13:15 02/21/25 08:20 Cyanocobalamin (B-12) 500 Mcg Tablet PO 03/22/25 13:14 1,000 mcg QAM [facility] Administration Furosemide 20 mg 02/20/25 09:00 02/21/25 08:19 Furosemide 20 Mg Tab PO 03/22/25 08:59 20 mg DAILY [facility] Administration Pantoprazole Sodium 40 mg/ 100 mls @ 20 mls/hr 02/19/25 18:00 02/22/25 06:26 Dextrose IV 03/21/25 17:59 8 mg/hr Q5H [facility] 20 mls/hr Administration 8 MG/HR Latanoprost 1 drops 02/19/25 21:00 02/21/25 20:37 Latanoprost 0.005% Op Soln 2.5 Ml Btl OPB 03/21/25 20:59 1 drops HS [facility] Administration Potassium Chloride 20 meq 02/20/25 09:00 02/21/25 08:24 Potassium Chloride Crtab 20 Meq Tabcr PO 03/22/25 08:59 20 meq DAILY [facility] Administration NPO Date Last Intake of Fluids: 02/22/25 Time Last Intake of Fluids: 04:00 Date Last Intake of Solids: 02/21/25 Time Last Intake of Solids: 10:00 Past Medical History Medical History Diabetes mellitus HTN (hypertension) Exercise / Class Metabolic Activity III < 4 Walking/Shop/Light housework Past Surgical History Surgical History No pertinent past surgical history Past Anesthesia History No Hx of Anesthesia Complications and No Family Hx of Anesthesia Complications History of PONV No Hx of PONV and No Hx of Motion Sickness Social History Smoking Status: Unknown if ever smoked Do You Dip or Chew Tobacco: No Hx Alcohol Use: No Hx Substance Use: No substance use type: does not use Review of Systems Ear, Nose, Mouth, Throat: + dental caries Respiratory: as per Subjective / HPI Gastrointestinal: + melena Chronic LE DVT on blodd thinner (Xaralto) Physical Exam Vital Signs Last Vital Signs Temp 36.3 C L 02/22/25 11:27 Pulse 82 02/22/25 11:27 Resp 16 02/22/25 11:27 BP 138/73 02/22/25 11:27 Pulse Ox 92 02/22/25 11:27 O2 Del Method Room Air 02/22/25 11:27 Constitutional + cachectic (ill appearing, thin) ENMT Mouth: + chipped teeth Thyromental Distance: < 3.5 Finger Breadths Mallampati Class: III Neck normal visual inspection Respiratory normal respiratory effort Auscultation: + diminished lung sounds Cardiovascular Rate/Rhythm: regular rate and regular rhythm Musculoskeletal Spine: normal cervical ROM Neurologic moves all extremities Motor/Sensory: no sensory deficit Psychiatric Orientation: alert and oriented x 3 seemed forgetful but A and O x 3 Testing Laboratory Results 02/22/25 10:00 02/22/25 10:00 PT 11.3 Seconds (9.0-12.0) 02/19/25 17:22 INR 1.1 (0.9-1.1) 02/19/25 17:22 APTT 23 Seconds (21-31) 02/19/25 17:22 Urine Color Yellow 02/19/25 19:16 Urine Appearance Clear (Clear) 02/19/25 19:16 Urine pH 7.0 (4.5-7.5) 02/19/25 19:16 Ur Specific [place] 1.009 (1.000-1.030) 02/19/25 19:16 Urine Protein Negative (Negative) 02/19/25 19:16 Urine Glucose (UA) Negative (Negative) 02/19/25 19:16 Urine Ketones Negative (Negative) 02/19/25 19:16 Urine Nitrite Negative (Negative) 02/19/25 19:16 Ur Leukocyte Esterase Trace (Negative) H 02/19/25 19:16 Urine WBC (Auto) 0-5 /hpf (0-5) 02/19/25 19:16 Urine RBC (Auto) 0-2 /hpf (0-2) 02/19/25 19:16 U Hyaline Cast (Auto) 0-2 /lpf (0-2) 02/19/25 19:16 U Epithel Cells (Auto) 0-2 /hpf (0-2) 02/19/25 19:16 Urine Bacteria (Auto) None Seen (None Seen) 02/19/25 19:16 Blood Type O Positive 02/19/25 18:13 Antibody Screen NEGATIVE 02/19/25 18:13
--- NOTE | 2025-02-22 12:19 | Hospitalist Progress Note ---
Date of Service February 22, 2025 Assessment & Plan (1) GIB (gastrointestinal bleeding): (2) Diabetes mellitus: (3) HTN (hypertension): Plan Ms. Doshi is an 84 year old woman with NIDDM 2, chronic right LE DVT, vitamin D deficiency, glaucoma, hemorrhoids and HTN admitted for further evaluation of acute anemia iso reported GIB. Patient with notably low iron. Patient following op providers for concerns since 11/2024. Patient more calm and understanding today, but will reinforce CLD and encourage EGD/C-scope come Saturday. Agrees to hydrocortisone cream and sitz baths for now. 3 Venofer today. #GIB #External hemorrhoids : Followed with Dr Bose on 12/08/2024: reports of 6 months of bleeding, started hydrocortisone cream in august for hemorrhoids, reports daily blood and stool leakage followed with PCP on 02/19: . Abdominal xray to eval for stool burden and rule out overflow diarrhea. Discussed with pt decreased rectal tone and the role this is likely playing in the incontinence. Will place referral to colorectal surgery to discuss options with the pt Re: hemorrhoid and rectal tone. hematochezia and melena GI Consult: reviewed notes, plan for c-scope and EGD today declined anusol suppository, start ointment sitz bath tid #acute on chronic microcytic anemia #Iron deificiency anemia 12/08/2024 hgb 9.9, down to 7s now; hgb in 2023 ~14 Ferritin 5.2, b12 151. iron 13 continue venofer 300mg 06/15 today, then plan for PO replacement transfuse hgb <7.0 plan for egd/c scope today #Diabetes Mellitus: Non-insulin dependent Most recent A1C: 6.5 on 12/08/24 Diet-controlled #Chronic RLE DVT: Per [facility] records; DVT was in 2020, followed Dr. Ortega last in 2022 She had one unprovoked DVT and normal anti-coagulation work-up; it was decided to use Xarelto for life. hold Xarelto for now, resume after procedures if hgb remains stable, likely resume this evening Disposition: PCP: Dr. Gomez Code Status: Full Code VTE Prophylaxis: Teds and SCDs for now Admission and Anticipated Discharge Date Admission Date: February 19, 2025 Subjective reports taking all of prep day prior, noted feeling a bit embarrassed with the "mess" states she understands she is going for a procedure today very pleasant and aware of plans no reports of blood or other concerns in stool, no nausea/abdominal pain Physical Exam Constitutional: anxious, but pleasant woman Respiratory: normal respiratory effort, lungs clear to auscultation Cardiovascular: RRR, no murmur, no edema Gastrointestinal (Abdomen): normal bowel sounds, soft, nontender, no hepatosplenomegaly Results & Data Results & Data Vital Signs (Past 12 Hours) Vital Signs Temp Pulse Pulse Resp BP Pulse Ox O2 Del Method 02/22/25 11:27 36.3 C L 82 16 138/73 92 Room Air 02/22/25 07:45 36.6 C 71 17 129/74 93 Room Air 02/22/25 03:25 36.6 C 74 18 114/61 97 Room Air
--- NOTE | 2025-02-22 12:21 | GI REPORT ---
[facility] Patient: CASSIE QUEZADA : 1940 Sex at : Female Age: 84 Years Procedure: Upper GI endoscopy Date: 02/22/2025 Attending Physician: Ward Duron MD Referring MD: Daysi Mendez Indications: - Melena Medications: - Monitored Anesthesia Care - Propofol per Anesthesia - See the Anesthesia note for documentation of the administered medications Complications: - No immediate complications. Estimated Blood Loss: - Estimated blood loss: None. Procedure: - ASA Grade Assessment: III - A patient with severe systemic disease. - The EGD scope was introduced through the mouth and advanced to the second part of the duodenum. - The upper GI endoscopy was accomplished without difficulty. - The patient tolerated the procedure well. Findings: - The esophagus was normal. - The entire examined stomach was normal. - The examined duodenum was normal. Impression: - Normal esophagus. - Normal stomach. - Normal examined duodenum. - No specimens collected. Recommendation: - [facility]. Procedure Code(s): - 21007, Esophagogastroduodenoscopy, flexible, transoral; diagnostic, including collection of specimen(s) by brushing or washing, when performed (separate procedure) Diagnosis Code(s): - K92.1, Melena (includes Hematochezia) CPT(R) - 2023 copyright [employer]. All Rights Reserved. The CPT codes, CCI edits and ICD codes generated are intended as suggestions and were generated based on input data. These codes are preliminary and upon rn cardiovascular review may be revised to meet current compliance and payer requirements. The provider is responsible for the final determination of appropriate codes, and modifiers. Dr. Ward Duron MD This document has been electronically signed. Note Initiated:02/22/2025 Note Completed:02/22/2025 12:20 PM \\[id number]
--- NOTE | 2025-02-22 12:23 | Communication Note ---
Date of Service: February 22, 2025 Precolonoscopy rectal exam revealed solid hard stool in place. EGD was normal Need to decide if it is worth it to put her through an entire second day of prep when she didn't consume all of her prep last night/this am.
[2025-02-22] MEDS: POTASSIUM CHLORIDE / WTR 10 MEQ/100 ML PLCT IV SCH (13:21)
--- NOTE | 2025-02-22 13:21 | Anesthesiology Progress Note ---
Date of Service February 22, 2025 Anesthesia Post Procedure Vital Signs Vital Signs: Temp Pulse Pulse Pulse Resp BP Pulse Ox 02/22/25 12:54 73 16 146/83 H 93 02/22/25 12:39 73 16 135/71 96 02/22/25 12:24 36.5 C 72 16 103/46 L 96 02/22/25 11:27 36.3 C L 82 16 138/73 92 02/22/25 08:00 76 02/22/25 07:45 36.6 C 71 17 129/74 93 02/22/25 03:25 36.6 C 74 18 114/61 97 02/21/25 23:46 36.6 C 84 18 131/68 95 02/21/25 19:55 36.6 C 87 20 110/77 98 02/21/25 17:20 36.7 C 85 19 129/73 96 02/21/25 13:38 87 O2 Del Method 02/22/25 12:54 Room Air 02/22/25 12:39 Room Air 02/22/25 12:24 Room Air 02/22/25 11:27 Room Air 02/22/25 08:00 02/22/25 07:45 Room Air 02/22/25 03:25 Room Air 02/21/25 23:46 Room Air 02/21/25 19:55 Room Air 02/21/25 17:20 Room Air 02/21/25 13:38 Transfer of Care Handoff Completed per policy Notes Mental Status: alert / awake / arousable and participated in evaluation Patient Amnestic to Procedure: Yes Nausea / Vomiting: adequately controlled Pain: adequately controlled Airway Patency, RR, SpO2: stable & adequate BP & HR: stable & adequate Hydration State: stable & adequate Anesthetic Complications: no major complications apparent and Pt Satisfied with anesthetic care
[2025-02-22] MEDS: LIDOCAINE 2% 2 ML VIAL/AMP(20MG/ML) INFIL ONE (14:12)
[2025-02-22] MEDS: PROPOFOL IV EMULSION 10 MG/ML 20 ML VIAL IV ONE (14:12)
[2025-02-22 15:37] VITALS: RESP 18
[2025-02-23 03:23] VITALS: O2SAT 96
[2025-02-23 07:44] VITALS: TEMP 98.6
[2025-02-23 07:56] LABS: Hematocrit (blood only) 27.3 % (37.0-47.0); Hemoglobin 8.0 g/dl (12.0-16.0); Mean Corpuscular Hemoglobin 21.1 pg (25.0-34.0); Mean Corpuscular Volume 71.8 fL (80.0-100.0); Platelet Count 274 K/uL (130-400); RDW Standard Deviation 41.8 fL (36.4-46.3); Red Blood Count 3.80 M/uL (4.20-5.40); White Blood Count 7.41 K/ul (4.8-10.8)
[2025-02-23 08:11] LABS: Anion Gap 9.0 (3-11); Blood Urea Nitrogen 5.0 mg/dl (6-23); Calcium 9.0 mg/dl (8.6-10.3); Carbon Dioxide 25.0 mmol/L (21-32); Chloride 108.0 mmol/L (98-107); Creatinine Clr Calc Pharmacy 58.0 ml/min; Glucose 104.0 mg/dl (70-99(Fasting)); Magnesium 2.0 mg/dl (1.7-2.4); Potassium 3.6 mmol/L (3.5-5.1); Sodium 142.0 mmol/L (136-145)
--- NOTE | 2025-02-23 10:56 | Discharge Summary ---
Discharge Summary Date of Service February 23, 2025 Principal Dx & Hospital Course #1 = Principal Diagnosis (1) GIB (gastrointestinal bleeding): (2) Diabetes mellitus: (3) HTN (hypertension): Plan Ms. Doshi is an 84 year old woman with NIDDM 2, chronic right LE DVT, vitamin D deficiency, glaucoma, hemorrhoids and HTN admitted for further evaluation of acute anemia iso reported GIB. Patient reports black, loose stool for months. Patient underwent prep for egd/colonoscopy on 02/22. Patient worked to complete bowel prep, but hard stool was noted within bowel. Patient's EGD was normal. Patient did not wish to remain and try prep again. Given the presence of notably hard stool, there is suspicion patient likely with overflow diarrhea iso constipation, therefore bowel regimen scheduled. Patient with notably low iron as well. Patient received 900mg venofer over her admission. Ferritin 5.2. Patient started on iron supplement. It would be recommended to consider OP colonoscopy in future if patient can tolerate prep. Patient resumed on xarelto, hgb remained stable in, discharged at 8.0. Iron deficiency anemia likely contributing. Patient should continue conservative measures for hemorrhoids including hydrocortisone cream application and sitz baths. On day of discharge, patient with no acute concerns. Wrote plan down on notebook to help patient with memory. Patient independent in room. #GIB #External hemorrhoids : Followed with Dr Bose on 12/08/2024: reports of 6 months of bleeding, started hydrocortisone cream in august for hemorrhoids, reports daily blood and stool leakage followed with PCP on 02/19: . Abdominal xray to eval for stool burden and rule out overflow diarrhea. Discussed with pt decreased rectal tone and the role this is likely playing in the incontinence. Will place referral to colorectal surgery to discuss options with the pt Re: hemorrhoid and rectal tone. hematochezia and melena GI Consult: reviewed notes, plan for c-scope and EGD today declined anusol suppository, continue ointment sitz bath tid #acute on chronic microcytic anemia #Iron deficiency anemia 12/08/2024 hgb 9.9, down to 7s now; hgb in 2023 ~14 Ferritin 5.2, b12 151. iron 13 continue venofer 300mg 3/ 3 today, then plan for PO replacement transfuse hgb <7.0 EGD: stomach is without source of bleed Cscope: stool burden noted encourage for labs in 1 week #Diabetes Mellitus: Non-insulin dependent Most recent A1C: 6.5 on 12/08/24 Diet-controlled #Chronic RLE DVT: Per [facility] records; DVT was in 2020, followed Dr. Ortega last in 2022 She had one unprovoked DVT and normal anti-coagulation work-up; it was decided to use Xarelto for life. resume xarelto Notes For Next Care Provider Schedule labs for hemoglobin trending in 1 week consider follow up iron labs in 3 months Medication Changes From Visit Schedule miralax schedule docusate use MoM for refractory constipation as needed resume xarleto start b12 supplementation start iron supplement Admission HPI Per Admitting Provider 84 year old female admitted with bleeding and anemia. We are doing EGD and colonoscopy Admission Exam Per Admitting Provider Constitutional: WD/WN, vitals as above Respiratory: normal respiratory effort, lungs clear to auscultation Cardiovascular: RRR, no murmur, no edema Gastrointestinal (Abdomen): normal bowel sounds, soft, nontender, no he patosplenomegaly Discharge Exam Constitutional WD/WN, vitals as above Respiratory normal respiratory effort, lungs clear to auscultation Cardiovascular RRR, no murmur, no edema Gastrointestinal (Abdomen) normal bowel sounds, soft, nontender, no hepatosplenomegaly Updated Medication List Medication Instructions Recorded Confirmed Type acetaminophen 325 mg tablet 650 mg PO BID 02/19/25 02/22/25 History (Tylenol) acetaminophen 325 mg tablet 650 mg PO Q4H PRN PAIN/TEMP >100F 02/19/25 02/22/25 History (Tylenol) cholecalciferol (vitamin D3) 25 25 mcg PO DAILY 02/19/25 02/22/25 History mcg (1,000 unit) capsule (Vitamin D3) furosemide 20 mg tablet 20 mg PO DAILY 02/19/25 02/22/25 History latanoprost 0.005 % eye drops 1 drp OPB HS 02/19/25 02/22/25 History potassium chloride 20 mEq 20 meq PO DAILY 02/19/25 02/22/25 History tablet,extended release(part/cryst) rivaroxaban 20 mg tablet (Xarelto) 20 mg PO HS 02/19/25 02/22/25 History cyanocobalamin (vitamin B-12) 500 1,000 mcg (2 x 500 mcg) PO QAM 30 02/23/25 Rx mcg tablet days #60 tabs docusate sodium 100 mg capsule 100 mg PO BID #60 caps 02/23/25 Rx ferrous sulfate 325 mg (65 mg 325 mg PO DAILY #30 tabs 02/23/25 Rx iron) tablet (iron) hydrocortisone 2.5 % topical cream 1 applic EXT Q6H hemorrhoids 30 02/23/25 Rx with perineal applicator days #30 grams (Proctosol HC) magnesium hydroxide 400 mg/5 mL 30 ml PO Q12H PRN constipation 30 02/23/25 Rx oral suspension (Milk of Magnesia) days #3,780 mL pantoprazole 40 mg tablet,delayed 40 mg PO BID 30 days #60 tabs 02/23/25 Rx release polyethylene glycol 3350 17 gram 17 g PO DAILY 30 days #30 ea 02/23/25 Rx oral powder packet (Miralax) Hospital Stay Data Consultations 02/19/25 18:13 ED Decision to Admit Stat 02/19/25 21:13 Consult Gastroenterology Routine Procedures Performed Operation Date: 02/22/25 16:30 Actual Procedures p Esophagogastroduodenoscopy - Ward Duron Jr, MD Pending Results Patient Have Any Pending Studies at Discharge: No Discharge Instructions Given to Patient (Per Discharging Provider) You were admitted for concerns of black stools and incontinence. You underwent prep for an EGD and colonoscopy. The EGD was completed and there were no signs of bleeding in your stomach. The colonoscopy was attempted and noted to have significant hard stool, even though you completed a good majority of your bowel prep. There is suspicion that your constipation is likely contributing to overflow diarrhea--where stool is liquid and flows around hard impacted stool. You should start a daily bowel regimen. You were prescribed docusate two times a day and daily miralax. You will be sent with milk of magnesia to help for further constipation. You should work to have a daily bowel movement without straining and stressing your hemorrhoids. You will be sent with a topical hemorrhoid cream. Please use up to 4 times a day to help keep them calm and less inflammed. Please consider doing sitz baths three times a day. You will start an iron supplement daily, this can turn your stool dark. Please follow up with your PCP for labs in 1 week to ensure blood work is stable. Total Time Total Time Spent Total Time Spent (In Minutes): 55
[2025-02-23 11:27] VITALS: BP 108/63; PULSE 83
== END 2025-02-23 12:56 | disposition home or self-care (01) | DRG 378 ==
LOC: ED 17:06 → SUATTDRO 18:27 → 2S 18:27